=== PATIENT | female | born 1990 | race Caucasian/White ===

== ENCOUNTER 2016-09-05 14:03 | Emergency (ER) | payer MEDICAID ==
--- NOTE | ~2016-09-05 | ER ---
PATIENT'S NAME: MAYANK BRYN [facility] AGE: 25 Y [address] ROOM: [place] [address] LOCATION: [facility] ADMIT DATE: 09/05/2016 ER/Outpatient Report DISCHARGE DATE: 09/05/2016 FAMILY PHYSICIAN: Iron Zepeda MD ATTENDING PHYSICIAN: Ana Crisostomo TIME SEEN: At 1450 hours. HISTORY OF PRESENT ILLNESS: The patient is a 25-year-old female, who developed a sore on the right side of her face. She said yesterday she has squeezed some purulent material from it. She denies any fever, chills, or neck pain. ALLERGIES: NONE. CURRENT MEDICATIONS: Include Effexor. MEDICAL HISTORY: Anxiety disorder, depression, history of herpes, and history of recent Chlamydia. SURGICAL HISTORY: Surgeries include left eye cyst removal. SOCIAL HISTORY: Smoker, a pack a day. Alcohol, occasionally. REVIEW OF SYSTEMS: GENERAL: No recent fevers. HEAD AND ENT: No sore throat or dysphonia. SKIN: An abscess-like sore on the right side of her face. PHYSICAL EXAMINATION: VITAL SIGNS: Reviewed. GENERAL APPEARANCE: No obvious distress. HEENT: Exam of the right side of her face showed again an abraded area that is slightly indurated. NECK: She had no cervical adenopathy. SKIN: Did show scarring from previous sores. ASSESSMENT: Small abscess, right side of face. PATIENT'S NAME: MAYANK BRYN [facility] AGE: 25 Y [address] ROOM: [place] [address] LOCATION: [facility] ADMIT DATE: 09/05/2016 ER/Outpatient Report DISCHARGE DATE: 09/05/2016 FAMILY PHYSICIAN: Iron Zepeda MD ATTENDING PHYSICIAN: Ana Crisostomo PLAN: Bactrim DS 1 b.i.d. for a week. Recommended hot packs 15 minutes 4 times a day. Recommend soap and water twice a day with topical antibiotic. Follow up with primary care if it does not improve. She also requested a repeat chlamydia which we did collect a urine, and the patient will be called if positive. JOSE ST FOR MD HUSAM SMITH/modl /[id number] d: 09/05/162006 t: 09/11/16 0757, OUTPATIENT REPORT
== END 2016-09-05 14:29 | disposition disaster alternative care site (69) ==
LOC: GMED 14:03
DX: L02.01 Cutaneous abscess of face (principal); F41.9 Anxiety disorder, unspecified; F32.9 Major depressive disorder, single episode, unspecified; F17.210 Nicotine dependence, cigarettes, uncomplicated